=== PATIENT | female | born 1965 | race Caucasian/White ===

== ENCOUNTER 2022-05-25 10:05 | Emergency (ER) | payer OTHER, SELFPAY ==
--- NOTE | ~2022-05-25 | US_ITS ---
US venous doppler [facility] DATE: 05/25/2022 11:52 INDICATION: Left leg pain for one week TECHNIQUE: Real-time and color flow imaging and Doppler analysis of the veins of the left lower extre mity COMPARISON: None FINDINGS: The mid to distal left greater saphenous vein is occluded. There is spontaneous and phasic flow and normal augmentation and color flow signal and normal carlota souleymane of the left common femoral, femoral, popliteal, posterior tibial and peroneal veins. IMPRESSION: Thrombosis of mid to distal left greater saphenous vein No deep venous thrombosis of left lower extremity Reviewed, dictated and finalized at Location A. Reviewed, dictated and finalized at location B. APPLIANCE ADJUSTER
[2022-05-25 10:12] VITALS: BP 156/83; PULSE 106; RESP 18; TEMP 36.8; O2SAT 96
--- NOTE | 2022-05-25 13:20 | ED.EXTPRO ---
HPI - Extremity Problem General Chief complaint: Extremity Problem,Nontraumatic Stated complaint: DVT? Time Seen by Provider: 05/25/22 10:53 Source: patient Mode of arrival: ambulatory Limitations: no limitations History of Present Illness HPI Narrative: Patient is a 56-year-old female who presents the ED with report of pain and swelling to left lower extremity. Patient reports having intermittent pain with ambulation over the last 2 weeks in her left leg. Over the last 1 week, she has noticed redness to the medial aspect of her left lower leg. She was referred to the ED by her primary care doctor to rule out DVT due to patient recently having COVID19. Patient reports she has improved from COVID. She denies any further cough or cold sx's, chest pain, shortness of breath, dyspnea on exertion, orthopnea, palpitations, swelling of other extremity, pleuritic pain. Patient denies history of blood clots. Denies any recent long distance travel, hormonal supplements. Review of Systems Review of Systems: CONSTITUTIONAL: Denies fever, chills, or sweats. ENT: Denies rhinorrhea, congestion, sore throat. CARDIOVASCULAR: Denies chest pain, palpitations, or edema. RESPIRATORY: Denies cough, [place], pleuritic pain, or dyspnea. GASTROINTESTINAL: Denies abdominal pain, nausea, vomiting. SKIN: Reports redness to medial left leg. MUSCULOSKELETAL: Reports pain to left leg. NEUROLOGIC: Denies tingling, numbness, or weakness. All systems reviewed & are unremarkable except as noted in HPI and below PMFSH Past Medical History Medical History (Updated 05/25/22 @ 13:51 by Kate Dowell PA-C) HTN (hypertension) Surgical History Surgical History (Updated 05/25/22 @ 13:51 by Kate Dowell PA-C) No pertinent past surgical history Social History Social History (Updated 05/25/22 @ 13:50 by Kate Dowell PA-C) Smoking status: Current every day smoker Tobacco type: cigarettes Exam Narrative: GENERAL: Well appearing, morbidly obese, non-toxic, in no acute distress. HEAD: Normocephalic, atraumatic. NECK: Supple. No adenopathy, no masses. RESPIRATORY: Airway patent, respirations nonlabored. Clear to auscultation bilaterally, no rales, rhonchi, wheezing. CARDIOVASCULAR: Regular rate and rhythm without murmurs, rubs, or gallops. Pedal pulses 2+ and equal bilaterally. MUSCULOSKELETAL: Moves all extremities. Strength/ROM intact without gross deformities. Area of redness, swelling, warmth, tenderness to palpation to medial aspect of left leg, extending from distal third of thigh down to mid calf. SKIN: Warm, dry, normal color. No rashes. NEURO: A&O X3. Speech clear. Cranial nerves II-XII grossly intact. Steady gait. No ataxic movements. PSYCHIATRIC: Appropriate mood and affect. Normal interaction. Course Vital Signs Vital signs: Vital Signs Temperature 98.3 F 05/25/22 10:12 Pulse Rate 106 H 05/25/22 10:12 Respiratory Rate 18 05/25/22 10:12 Blood Pressure 156/83 H 05/25/22 10:12 Pulse Oximetry 96 05/25/22 10:12 Temperature 98.3 F 05/25/22 10:12 Pulse Rate 88 05/25/22 14:33 Respiratory Rate 20 05/25/22 14:33 Blood Pressure 142/60 H 05/25/22 14:33 Pulse Oximetry 99 05/25/22 14:33 MDM - Extremity (Nontraumatic) MDM Narrative Medical decision making narrative: Patient presented to ED with 1 week history of pain to left leg. Recent COVID, sent to rule out DVT. Patient with area of redness, tenderness, swelling to medial left leg on exam. Venous Doppler ultrasound of left lower extremity showing superficial venous thrombosis of greater saphenous vein. No DVT. Patient relatively low risk for blood clots aside from recent COVID. No previous Hx. She was documented as tachycardic upon arrival to the ED, however normal rate by the time of my evaluation. Patient adamantly denying any chest pain, difficulty breathing, dyspnea on exertion, respiratory sx's. No indication to investigate PE at this
[2022-05-25 14:33] VITALS: BP 142/60; PULSE 88; RESP 20; O2SAT 99
== END 2022-05-25 14:35 | disposition home or self-care (01) ==
PROVIDERS: Emergency Provider Physician Assistant
DX: I82.812 Embolism and thrombosis of superficial veins of left lower extremity (principal); Z86.16 Personal history of COVID-19; I10 Essential (primary) hypertension; F17.210 Nicotine dependence, cigarettes, uncomplicated
CPT/HCPCS: 93971; 99284

== ENCOUNTER 2023-04-16 08:24 | Outpatient (CLI) | payer OTHER, SELFPAY ==
--- NOTE | ~2023-04-16 | MM_ITS ---
EXAMINATION: MM screening salima BI w maximo HISTORY: Screening mammogram TECHNIQUE: Craniocaudal and mediolateral oblique 3-D tomosynthesis images were obtained and synthetic 2-D images were generated. CAD analysis was submitted and interpreted. COMPARISON: No prior mammogram is available for comparison at this institution. BREAST PARENCHYMAL COMPOSITION: The breasts are almost entirely fatty. FINDINGS: There is no evidence of suspicious mass, calcification, or architectural distortion to sugg est malignancy in either breast. IMPRESSION: 1. No mammographic evidence of malignancy. 2. Recommend routine screening mammography in one year. BI-RADS Category 1: Negative Reviewed, dictated and finalized at location A.
== END 2023-04-16 08:25 | disposition home or self-care (01) ==
LOC: ANHIMG 08:28
PROVIDERS: PCP Internal Medicine; Visit Provider Internal Medicine
DX: Z12.31 Encounter for screening mammogram for malignant neoplasm of breast (principal)
CPT/HCPCS: 77063; 77067

== ENCOUNTER 2023-09-25 07:59 | Outpatient (CLI) | payer OTHER, SELFPAY ==
--- NOTE | ~2023-09-25 | US_ITS ---
EXAMINATION: US_VDOPREFLT_US DATE: 09/25/2023 11:45 INDICATION: Left lower limb localized edema. TECHNIQUE: Grayscale ultrasound images without and with compression and Doppler ultrasound images of the left lower extremity veins were obtained. COMPARISON: None. FINDINGS: The visualized portions of left common femoral vein, profunda (deep) femoral vein, femoral vein, popl iteal vein, peroneal veins, and posterior tibial veins are patent. Left greater saphenous vein measur es 7 mm in the upper thigh where there is 1.0 seconds reflux. Left greater saphenous vein measures 4 mm in the lower thigh, there is 2.5 seconds reflux. Left greater saphenous vein measures 5 mm in the lower leg, there is 2.1 seconds reflux. Left small saphenous vein measures 2 mm without reflux. IMPRESSION: 1. Reflux in left greater saphenous vein. Reviewed, dictated and finalized at location A.
--- NOTE | ~2023-09-25 | US_ITS ---
EXAMINATION: US arterial ankle brachial ind DATE: 09/25/2023 11:45 INDICATION: Claudication. Peripheral vascular disease. TECHNIQUE: Segmental pressures and plethysmographic and Doppler waveforms of the brachial and lower e xtremity arteries were obtained. COMPARISON: None. FINDINGS: Right and left brachial artery pressures of 124 mm Hg and 118 mm Hg, respectively, are concordant (no rmal difference <= 30 mmHg). The right ankle-brachial index (ZOE) is 1.14 (normal >= 0.9-1.0). The right great toe-brachial index (TBI) is 0.64 (normal >= 0.65). Arterial Doppler waveforms are biphasic at the ankle. The left ZOE is 1.10. The left TBI is 1.03. Arterial Doppler waveforms are at least biphasic at the a nkle. IMPRESSION: 1. Normal right ZOE and borderline decreased right TBI, consistent with right-sided arterial occlusiv e disease. 2. No significant left-sided arterial occlusive disease. Reviewed, dictated and finalized at location A. IMPRESSION: 1. Normal right ZOE and borderline decreased right TBI, consistent with right-s ided arterial occlusive disease. 2. No significant left-sided arterial occlusive disease.
== END 2023-09-25 08:00 | disposition home or self-care (01) ==
PROVIDERS: PCP Internal Medicine; Visit Provider Nurse Practitioner Family
DX: R60.0 Localized edema (principal); I73.9 Peripheral vascular disease, unspecified
CPT/HCPCS: 93922; 93971

== ENCOUNTER 2024-04-19 08:05 | Outpatient (CLI) | payer OTHER, SELFPAY ==
[2024-04-19 08:35] LABS: Basophils Absolute Auto 0.1 K/mm3 (0.0-0.1); Basophils Percent Auto 1.1 % (0.2-1.2); Eosinophils Absolute Auto 0.2 K/mm3 (0-0.3); Eosinophils Percent Auto 2.4 % (0-4.4); Hematocrit 50.4 % (37.0-47.0); Hemoglobin 16.6 g/dL (12.0-15.0); Immature Granulocyte Absolute 0.02 K/mm3 (0.00-0.031); Immature Granulocyte Percent A 0.2 % (0-0.5); Lymphocytes Absolute Auto 2.84 K/mm3 (0.9-3.2); Lymphocytes Percent Auto 35.2 % (18.3-44.2); Mean Corpuscular HGB Conc 32.9 g/dl (32-36); Mean Corpuscular Volume 88.1 fl (80-100); Mean Platelet Volume 10.4 fl (7.4-10.4); Monocytes Absolute Auto 0.5 K/mm3 (0.1-0.6); Monocytes Percent Auto 6.7 % (2.6-8.5); Neutrophils Absolute Auto 4.4 K/mm3 (1.3-6.7); Neutrophils Percent Auto 54.4 % (45.5-73.1); Platelet Count Result 345 k/mm3 (150-375); Red Blood Count 5.72 M/mm3 (4.2-5.4); Red Cell Distribution Width 15.2 % (11.5-14.5); White Blood Count 8.1 K/mm3 (4.5-10.0)
[2024-04-19 08:43] LABS: Alanine Aminotransferase 17 U/L (6-35); Albumin Level 4.4 g/dL (3.5-5.1); Alkaline Phosphatase 76 U/L (38-126); Anion Gap 11 mmol/L (4-12); Aspartate Amino Transferase 24 U/L (14-36); Bilirubin,Total 0.7 mg/dL (0.2-1.3); Blood Urea Nitrogen 14 mg/dL (7-17); Calcium 9.2 mg/dL (8.4-10.2); Carbon Dioxide 24 mmol/L (22-30); Chloride 108 mmol/L (98-107); Cholesterol 171 mg/dL (0-200); Estimated Glomerular Filt Rate > 60; Glucose 103 mg/dL (65-110); HDL Direct 41 mg/dL; Sodium 143 mmol/L (137-145); Triglycerides 79 mg/dL (<150)
[2024-04-19 08:54] LABS: LDL Cholesterol Direct 102 mg/dL
[2024-04-19 09:26] LABS: MALB Creatinine Ratio 6.2 mg/g (0-30); Microalbumin Urine Random 7.9 mg/L (0-16.7)
[2024-04-19 09:27] LABS: Hemoglobin A1C 5.9 % (<5.7)
[2024-04-22 05:49] LABS: FSH 51.9 mIU/mL
== END 2024-04-19 08:06 | disposition home or self-care (01) ==
PROVIDERS: PCP Family Medicine; Visit Provider Family Medicine
DX: Z13.6 Encounter for screening for cardiovascular disorders (principal); Z13.1 Encounter for screening for diabetes mellitus; I10 Essential (primary) hypertension; Z78.0 Asymptomatic menopausal state
CPT/HCPCS: 36415; 80053; 80061; 82043; 83001; 83036; 85025

== ENCOUNTER 2024-04-25 12:55 | Outpatient (CLI) | payer OTHER, SELFPAY ==
--- NOTE | ~2024-04-25 | US_ITS ---
Pelvic ultrasound. Clinical History: Postmenopausal bleeding Technique: Realtime transabdominal and transvaginal scanning of the pelvis was performed. Color flow Doppler and Doppler spectral analysis were performed. Findings: The uterus is retroverted.. The endometrial stripe has a thickness of 5 mm. Myometrium is heterogeneous, without discrete focal mass. Cervical nabothian cysts present. Neither ovary seen. No adnexal mass seen. There is no evidence of free fluid in the cul de sac. Impression: Endometrial stripe is within normal limits. Reviewed, dictated and finalized at location M. L POURER Impression: Endometrial stripe is within normal limits.
== END 2024-04-25 12:56 | disposition home or self-care (01) ==
PROVIDERS: PCP Family Medicine; Visit Provider Family Medicine
DX: N95.0 Postmenopausal bleeding (principal)
CPT/HCPCS: 76830

== ENCOUNTER 2024-06-19 13:20 | Outpatient (CLI) | payer OTHER, SELFPAY ==
--- NOTE | ~2024-06-19 | CT_ITS ---
EXAMINATION: CT lung screening DATE: 06/19/2024 13:46 INDICATION: Z87.891 - Personal history of nicotine dependence TECHNIQUE: Computed tomography (CT) of the chest was performed without intravenous contrast. Addition al 3D reconstructions utilizing coronal maximum intensity projection (MIP) were performed. Automated exposure control and iterative reconstruction technique were employed. The dose-length product was 25 7.64 mGy-cm. COMPARISON: None FINDINGS: Small calcified nodules in the left upper and lower lobes along with calcified left hilar and mediast inal lymph nodes consistent with old granulomatous disease. 2 mm noncalcified nodule in the left lowe r lobe. No pneumonia, pulmonary edema or pleural effusion. Heart size is normal. No pericardial effus ion. Thoracic aorta is normal in caliber. No pathologically enlarged thoracic lymphadenopathy. Cholec ystectomy clips the gallbladder fossa. Small sliding-type hiatal hernia. Thoracic spondylosis. IMPRESSION: 1. Lung-RADS category 2: Benign appearance or behavior. Continue annual screening with noncontrast lo w-dose chest CT in 12 months. Reviewed, dictated and finalized at location B. ING TACKER IMPRESSION: 1. Lung-RADS category 2: Benign appearance or behavior. Continue annual screeni ng with noncontrast low-dose chest CT in 12 months.
== END 2024-06-19 13:21 | disposition home or self-care (01) ==
PROVIDERS: PCP Family Medicine; Visit Provider Physician Assistant
DX: Z12.2 Encounter for screening for malignant neoplasm of respiratory organs (principal); Z87.891 Personal history of nicotine dependence
CPT/HCPCS: 71271

== ENCOUNTER 2024-07-18 00:35 | Day surgery (SDC) | payer OTHER, SELFPAY ==
[2024-07-10 09:56] VITALS: BMI 37.5
--- NOTE | 2024-07-10 10:04 | PC.NURSE ---
Report to the Outpatient Waiting Room, entrance under the green pavilion located off [facility], at time _0830_ on date _[id number]_. Planned Procedure Time: _1030_.? Time changes happen often and if your time is changed the preop area will call you the afternoon before. - You and your visitor will be asked to self-screen and do not enter if you have any COVID symptoms. Please call surgeon if you need to reschedule. - A mask is optional within the hospital at this time. Patients may have clear liquids (water, carbonated beverages, clear teas, apple juice) until 3 hours prior to surgery with a maximum of 20 ounces. - No food from midnight until time of surgery and no smoking. This includes no chewing gum, candy or mints. Take only the following medications with a SIP of water on the morning of surgery: __None____ DO NOT STOP ANY OF YOUR OTHER PRESCRIPTION MEDICATIONS PRIOR TO SURGERY EXCEPT THE FOLLOWING Medications to discontinue per physician ____Vitamins Date to take last qlbr__[id number]__ Please no make-up, nail st helenian, hairspray, perfume, deodorant, or body powder the day of surgery.? No jewelry (including any body piercings) or valuables the day of surgery, leave them at home.? Please take a shower or bath the night before, or the morning of, surgery with an antibacterial soap.? Wear comfortable, loose fitting clothing.? - Jewelry must be removed prior to entering the operating room.? Rings and piercings that are not removed may be cut off. - The hospital will not accept responsibility for valuables.? - Please leave all valuables, including medications, at home the day of surgery. If you are going home after surgery, a licensed bellman driver must drive you home.? - NO public transportation without another adult if you receive anesthesia. - We recommend that an adult stay with you for 24 hours following discharge. - We also recommend that you do not drive, make important decision, drink alcoholic beverages, or take any drugs that were not prescribed by your health care provider for at least 24 hours after your discharge time. Follow any additional instructions given to you from your surgeon. Telephone instructions given to __Debra__and asked if any additional questions and then verbalized understanding. Patient advised to call surgeon office or pre surgery nurse liaison [phone] if any additional questions.
--- NOTE | 2024-07-18 08:07 | P.PNAN_ITS ---
Anes - Initial Pre Proc Eval Procedure: Operation Date: 07/18/24 11:30 Proposed Procedures p Hysteroscopy Dilation and Curettage with Possible Removal of Endometrial Lesions - Jose Juan Dawkins MD Date/Time: 07/18/24 08:07 Surgeon: Jose Juan Dawkins MD Pre Op Diagnosis: Post Menopausal Bleeding Patient Data Age: 58 Gender: F Height: 1.77 m Weight: 116.8 kg Allergies Allergy/AdvReac Type Severity Reaction Status Date / Time No Known Allergies Allergy Verified 07/18/24 10:26 Home Medications ?Medication ?Instructions ?Recorded ?Confirmed ?Type lisinopril 40 mg tablet 40 mg PO DAILY 04/07/24 07/18/24 History atorvastatin 20 mg tablet 20 mg PO DAILY #30 tabs 04/28/24 07/18/24 Rx cholecalciferol (vitamin D3) 50 50 mcg PO DAILY 05/14/24 07/18/24 History mcg (2,000 unit) capsule cyanocobalamin (vitamin B-12) 50 50 mcg PO DAILY 05/14/24 07/18/24 History mcg tablet (Vitamin B-12) Patient hx anesthesia problems: none Family hx anesthesia problems: none Results Review: All pre-operative results and documents have been reviewed as part of the pre- operative evaluation. [facility] Past Medical History Medical History (Updated 07/18/24 @ 08:07 by Christiano Nunn DO) SAI (obstructive sleep apnea) Hyperlipidemia H/O cyst of breast HTN (hypertension) Surgical History Surgical History [place] teeth removed History of loop electrosurgical excision procedure (LEEP) History of colposcopy History of appendectomy No pertinent past surgical history Family History Family History Mother Cancer Diabetes mellitus Sibling Alcoholism Heart problem Social History Social History Smoking packs per day: 1 Smoking cigarettes per day: 20.0 Years smoked: 35 Smoking pack-years: 35.00 Smoking status: Current every day smoker Tobacco type: cigarettes Alcohol intake: current Do You Feel Safe in your Home?: Yes Lack of Transportation: No Lack of Food: Never True Current Housing: I Have Housing Concerned About Future Housing: No Difficulty Paying Gas/Electric Bills: No Currently Unemployed: No Education: Associate Degree Difficulty w/ Childcare or Family Care: No Living arrangements: with family Spiritual care concerns: No Anes - Eval Final PreProcedure Day of Procedure 07/18/24 08:07 Patient weight: obese Heart: regular rate and rhythm Lungs: clear to auscultation Airway: Mallampati scale class II Neurological: alert and oriented Last oral intake: >/= 8 hours ASA classification: III Emergent: no Anesthetic plan: proceed Anesthesia type and monitoring: general GIVS and standard monitoring Results Review: All pre-operative results and documents have been reviewed as part of the pre- operative evaluation. Informed Consent: The patient's anesthetic plan and its attendant risks and benefits were discussed with the patient/family/POA. Questions were solicited and answers provided to the satisfaction of the patient/family/POA.
[2024-07-18 09:25] VITALS: BP 135/67; PULSE 82; RESP 16; TEMP 36.3; O2SAT 96
[2024-07-18] MEDS: LACTATED RINGERS 1,000 ML 30 ML IV CONT (10:05)
[2024-07-18] MEDS: ACETAMINOPHEN 500 MG TABLET 1000 MG PO (10:11)
--- NOTE | 2024-07-18 10:12 | WPDHPUPDATE1 ---
History and Physical Update Update Date/Time: 07/18/24 10:12 History and Physical has been reviewed, including an updated exam of the patient. There are NO changes in the patient's condition. Risks, benefits, and alternatives have been discussed and questions answered. Patient agrees to proceed with procedure.
[2024-07-18 10:27] VITALS: BMI 37.1
[2024-07-18] MEDS: ceFAZolin 2 GM/D5W 50 ML 2 GM/50 ML BAG IVPB (11:16)
[2024-07-18] MEDS: LIDOCAINE 1% LOCAL INJ 20 ML VIAL 10 ML INFILTRATE (11:35)
[2024-07-18 11:44] VITALS: PULSE 81; RESP 14; O2SAT 97
--- NOTE | 2024-07-18 12:02 | P.OP_ITS ---
Procedure Note - Detailed Date of Procedure 07/18/24 Pre-op Diagnosis Post Menopausal Bleeding and Endometrial polyp Post-op Diagnosis Same Procedure Performed hysteroscopic removal endometrial polyp and dilation and curettage Surgeon Jose Juan Dawkins MD Anesthesia MAC and Local Indications postmenopausal bleeding and office endometrial biopsy showing endometrial polyp Findings small polyp at the superior right near cornual area of uterine cavity it was r emoved completely the rest the cavity was atrophic appearing Description of Procedure after informed consent was obtained patient was taken to the operating room and adequate IV sedation was administered she was placed in lithotomy position and prepped and draped in sterile fashion. Speculum was inserted single-tooth tenaculum placed on the anterior lip of the cervix 10 cc of 1% lidocaine was injected at the cervical vaginal interface at the 2 and 5 and 8 and 10 position. The cervix was dilated to a 4 Gannon dilator. The sound was inserted and the uterus was sound to 7 cm. The hysteroscope was inserted into the cavity and the endometrial polyp was seen at the superior right cavity. The Aveta instrument was used to remove the polyp which was removed completely curettage was performed with minimal tissue single-tooth tenaculum removed hemostasis noted patient tolerated procedure well and was taken to recovery in stable condition. Estimated Blood Loss 5 Drains No Packing No Pathology Yes ( endometrial curettings and shavings) Complications No immediate complications Condition Stable Disposition Observation [facility] Billing Surgery - Charge Forward: Surgery Billing
[2024-07-18 12:15] VITALS: BP 141/72; PULSE 69; RESP 16; O2SAT 97
[2024-07-18] MEDS: oxyCODONE HCL (*CRX) 5 MG TAB IR PO (12:15)
[2024-07-18 12:33] VITALS: BP 127/75; PULSE 72
--- NOTE | 2024-07-18 12:50 | SUR.PHASEII ---
1210 PT MOVED TO PREOP 5 FOR REMAINDER OF OUTPATIENT RECOVERY
== END 2024-07-18 12:50 | disposition home or self-care (01) ==
PROVIDERS: PCP Family Medicine; Visit Provider Obstetrics & Gynecology
PROC: 0U5B8ZZ Destruction of Endometrium, Via Natural or Artificial Opening Endoscopic (ICD-10-PCS; CPT 58563; principal; 2024-07-18 11:30)
DX: N84.0 Polyp of corpus uteri (principal); I10 Essential (primary) hypertension; E78.5 Hyperlipidemia, unspecified; G47.33 Obstructive sleep apnea (adult) (pediatric); F17.210 Nicotine dependence, cigarettes, uncomplicated; E66.9 Obesity, unspecified; Z68.37 Body mass index [BMI] 37.0-37.9, adult; Z98.890 Other specified postprocedural states; Z80.9 Family history of malignant neoplasm, unspecified; Z82.49 Family history of ischemic heart disease and other diseases of the circulatory system
CPT/HCPCS: 58558; 88305; A9270; J0690; J1100; J2003; J2250; J2405; J2704; J3010; J7120

== ENCOUNTER 2024-09-17 15:58 | Outpatient (CLI) | payer OTHER, SELFPAY ==
[2024-09-17 16:15] LABS: Basophils Absolute Auto 0.1 K/mm3 (0.0-0.1); Basophils Percent Auto 0.8 % (0.2-1.2); Eosinophils Absolute Auto 0.2 K/mm3 (0-0.3); Eosinophils Percent Auto 1.7 % (0-4.4); Hematocrit 46.9 % (37.0-47.0); Hemoglobin 15.3 g/dL (12.0-15.0); Immature Granulocyte Absolute 0.03 K/mm3 (0.00-0.031); Immature Granulocyte Percent A 0.3 % (0-0.5); Lymphocytes Absolute Auto 2.71 K/mm3 (0.9-3.2); Lymphocytes Percent Auto 29.4 % (18.3-44.2); Mean Corpuscular HGB Conc 32.6 g/dl (32-36); Mean Corpuscular Hemoglobin 28.2 pg (26-34); Mean Corpuscular Volume 86.4 fl (80-100); Mean Platelet Volume 10.3 fl (7.4-10.4); Monocytes Absolute Auto 0.5 K/mm3 (0.1-0.6); Monocytes Percent Auto 5.3 % (2.6-8.5); Neutrophils Absolute Auto 5.8 K/mm3 (1.3-6.7); Neutrophils Percent Auto 62.5 % (45.5-73.1); Platelet Count Result 339 k/mm3 (150-375); Red Blood Count 5.43 M/mm3 (4.2-5.4); Red Cell Distribution Width 14.6 % (11.5-14.5); White Blood Count 9.2 K/mm3 (4.5-10.0)
--- OUTSIDE RECORDS SUMMARY | 2024-09-17 17:04 | XMS_ITS | Clinical Summary ---
Author Organization [facility] Address [address] [place] [address] Care Team Providers Care Auto Cleaner Name Role Phone Nate Johnson MD Primary Care Provider Source Comments [facility],non-owned Affiliates and Associated Physician Practices is amultiple site organization consisting of ambulatory clinics and hospital sitesin [place], [place], [place] and [place]. This disclosure is being madepursuant to the Care Everywhere program and may not contain all information available regarding this patient. Last updated 18.[facility] Allergies Active Allergy Reactions Criticality Noted Date Comments Codeine GI Discomfort 2018 Medications * Be aware that medications may not be up to date on this document. Alwaysverify current medications with the patient. Medication Sig Dispensed Refills Start Date End Date Status Multiple Vitamins-Minerals (MULTIVITAL PO) Active lisinopril (PRINIVIL; ZESTRIL) 20 MG tablet Take 20 mg by mouth once daily Active Social History Tobacco Use Types Packs/Day Years Used Date Smoking Tobacco: Every Day Smokeless Tobacco: Never Sex and Gender Information Value Date Recorded Sex Assigned at Not on file Gender Identity Not on file Sexual Orientation Not on file Last Filed Vital Signs Vital Sign Reading Time Taken Comments Blood Pressure 142/90 2018 11:30 AM CDT Pulse 81 04/07/2020 10:41 AM CDT Temperature 36.6 C (97.9 F) 04/07/2020 10:41 AM CDT Respiratory Rate 18 04/07/2020 10:41 AM CDT Oxygen Saturation 96% 04/07/2020 10:41 AM CDT Inhaled Oxygen Concentration - - Weight 112.9 kg (249 lb) 04/07/2020 10:41 AM CDT Height 177.8 cm (5' 10 ) 04/07/2020 10:41 AM CDT Body Mass Index 35.73 04/07/2020 10:41 AM CDT Plan of Treatment Health Maintenance Due Date Last Done Comments COLOGUARD (AGES 45-75) - COL ON CA SCREENING 1964 COLON MONITORING 1964 COLONOSCOPY - COLON CA SCREENING 1964 CT COLONOGRAPHY - COLON CA SCREENING 1964 Colorectal Cancer Screening 1964 FIT - COLON CA SCREENING 1964 FLEX SIG - COLON CA SCREENING 1964 LIPID TESTING 1964 MAMMOGRAM 1964 PAP SMEAR 1964 HIV SCREENING 11/04/1979 HEPATITIS C SCREENING 10/30/1982 DTAP/TDAP/TD VACCINES (1 - Tdap) 11/04/1983 HEPATITIS B VACCINE (1 of 3 - 19+ 3-dose series) 11/04/1983 PNEUMOCOCCAL VACCINE (1 of 2 - PCV) 11/04/1983 PNEUMOCOCCAL VACCINE 50+ (1 of 1 - PCV) 2014 ZOSTER VACCINE (1 of 2) 2014 SCREENING FOR DIABETES 04/07/2020 COVID-19 VACCINE (1 - 2023-2 5 season) 2024 INFLUENZA VACCINE (#1) 2024 DEPRESSION SCREENING 06/25/2024 HIB VACCINE Aged Out No longer eligi ble based on patient's age to complete this topic HPV VACCINE Aged Out No longer eligi ble based on patient's age to complete this topic MENINGOCOCCAL (Group B) VACC INE SHARED DECISION-MAKING Aged Out No longer eligibl e based on patient's age to complete this topic MENINGOCOCCAL GROUPS A/C/Y/W VACCINE Aged Out No longer eligible b ased on patient's age to complete this topic Care Teams Auto Cleaner Relationship Specialty Start Date End Date Nate Johnson MD [address] [address] PCP - General Internal Medicine 11/03/18
--- OUTSIDE RECORDS SUMMARY | 2024-09-17 17:04 | XMS_ITS | Clinical Summary ---
Author Organization [facility] Address [address] [place] [address] Care Team Providers Care State Director Name Role Phone Unavailable Primary Care Provider Unavailabl e Allergies No known active allergies Medications atorvastatin (LIPITOR) 20 mg tablet Take 1 Tablet by mouth daily. 08/05/2024 Active lisinopriL (PRINIVIL) 40 mg tablet Take 40 mg by mouth daily. Active cyanocobalamin 1,000 mcg Tablet Take 500 mcg by mouth daily. Active B3/azel ac/zinc/B6/coppe r/FA (A9-SPPEGIO-WIBV -S0-[id number]-NW ORAL) Take 50 mcg by mouth daily. Active Active Problems No known active problems Encounters Date Type Department Care Team Description 09/17/2024 3:00 PM CDT Office Visit [facility] Oncology and Hematology [facility] [address] [place] [address] Weston Dong MD Erythrocytosis (Primary Dx); Screening for lung cancer 09/17/[address] [facility] Oncology and Hematology [facility] [address] [place] [address] Weston Dong MD from Last 3 Months Family History Medical History Relation Name Comments No Known Problems Brother 1 No Known Problems Brother 2 Heart Disease Brother 3 No Known Problems Child Liver Cancer Mother Spot on liver Uterine Cancer Mother No Known Problems Sister Relation Name Status Comments Brother 1 Alive Brother 2 Alive Brother 3 Child Alive Father Mother Sister Alive Social History Tobacco Use Types Packs/Day Years Used Date Smoking Tobacco: Every Day Cigarettes 1 41.2 Started: 06/25/1983 Smokeless Tobacco: Never Tobacco Cessation:Ready to Q uit: Not Asked; Counseling Given: Not Answered Alcohol Use Standard Drinks/Week Comments Yes 0 (1 standard drink = 0.6 oz pur e alcohol) Occasionally Comments Unknown Sex and Gender Information Value Date Recorded Sex Assigned at Not on file Legal Sex Female 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 Gender Identity Not on file Sexual Orientation Not on file Last Filed Vital Signs Vital Sign Reading Time Taken Comments Blood Pressure 127/73 09/17/2024 3:26 PM CDT Pulse 92 09/17/2024 3:26 PM CDT Temperature 36.3 C (97.4 F) 09/17/2024 3:26 PM CDT Respiratory Rate 15 09/17/2024 3:26 PM CDT Oxygen Saturation 93% 09/17/2024 3:26 PM CDT Inhaled Oxygen Concentration - - Weight 117.3 kg (258 lb 9.6 oz) 09/17/2024 3:26 PM CDT Height 175.3 cm (5' 9 ) 09/17/2024 3:26 PM CDT Body Mass Index 38.19 09/17/2024 3:26 PM CDT Plan of Treatment Upcoming Encounters Date Type Department Care Team (Late st Contact Info) Description 10/01/2024 4:15 PM CDT Telephone Check Up [facility] Oncology and Hematology - [place] [address] [address] [place] [address] Weston Dong MD [address] [facility] [address] [facility] [place] [address] Health Maintenance Due Date Last Done Comments DTAP/TDAP/TD VACCINES (1 - Tdap) 11/04/1983 HEPATITIS B VACCINES (1 of 3 - 19+ 3-dose series) 10/23 PAP SMEAR 1985 CERVICAL CANCER SCREENING 1994 HPV/Cotest 1994 PAP SMEAR 1994 BREAST CANCER SCREENING 2004 COLORECTAL SCREENING 2009 Colorectal Cancer Screening 2009 FIT-DNA Q 3 years 2009 FIT/FOBT Q 1 year 2009 Flex Sig/CT Colonography Q 5 years 2009 ZOSTER VACCINE (1 of 2) 2014 INFLUENZA VACCINE (#1) 2024 Insurance NATL [employer]N LETTER [employer] OAP NAT[employer] OAP
--- OUTSIDE RECORDS SUMMARY | 2024-09-17 17:04 | XMS_ITS | Clinical Summary ---
Author Organization [facility] Address [address] [place] [id number] Care Team Providers Care Ignition Mechanic Name Role Phone Nate Johnson MD Primary Care Provider Allergies Active Allergy Reactions Criticality Noted Date Comments Amoxicillin Other (See comments) Low 11/02/2020 Codeine Other (See comments) Low 2018 Medications lisinopriL (PRINIVIL,ZESTRI L) 40 mg tablet 09/17/2020 Act parviz aspirin 81 mg enteric coated tablet Take 81 mg by mouth daily Active buPROPion SR (ZYBAN) 150 mg 12 hr tablet 10/12/2020 Active Active Problems Problem Noted Date Diagnosed Date Tonsillar cyst 01/06/2021 Assessment & Plan (01/06/2021 10:40 AM CDT): Patient has undergone MRI C-spine with an incidental finding of a tonsillar cyst. While this may be a benign finding direct visualization was recommended. I have asked her to follow-up with her PCP for referral to an ENT for further investigation into this matter as appropriate. Paresthesia of skin 09/27/2020 Assessment & Plan (01/06/2021 10:33 AM CDT): Patient has had spontaneous reduction in frequency of episodic migratory paresthesia in the left arm. MRI of the cervical spine demonstrates cervical spondylosis. EMG/NCS testing is normal. I will place her through a course of physical therapy for what clinically would be likely intermittent cervical radiculopathy associated with her cervical spondylosis. I will see her back in the office on an as-needed basis thereafter. Assessment & Plan (11/02/2020 10:20 AM CDT): Patient continues with episodic left arm numbness not currently associated with lightheadedness. Previous MRI brain is normal as is lipid profile. Cardiac testing by reviewed reports are normal today as well. As per my previous records, I will pursue an MRI of the cervical spine and neurophysiologic testing with EMG/NCS to assess for the possibility of compressive neuropathy or radiculopathy. I will see her back thereafter. Assessment & Plan (09/27/2020 9:19 AM CDT): Patient reports a 6 week history of multiple episodes lasting up to 30-45 minutes at a time of left arm diffuse numbness, sometimes in isolation and other times associated with hypertension, lightheadedness, and tunneling of vision. She reports having had previous carotid ultrasound and echocardiogram performed which she was told were normal as well as a CT scan of the brain that she was told was normal although those reports are unavailable for review today. They will be requested for review. Differential diagnosis includes cardiac ischemia, TIA, cervical radiculopathy, and less likely compressive neuropathy. I will obtain an MRI of the brain and a fasting lipid profile, and I have asked patient to contact her PCP for a cardiology evaluation. I think given her history of cardiac issues, cardiac ischemia must be excluded 1st, and then if all other testing is negative, I can pursue a radiculopathy or compressive neuropathy evaluation thereafter. I will see her back upon completion of study. Surgical History Surgery Date Site/Laterality Comments GALLBLADDER SURGERY APPENDECTOMY BREAST SURGERY WRIST SURGERY SHOULDER SURGERY Medical History Medical History Date Comments Hypertension Family History Medical History Relation Name Comments Parkinsonism Father Diabetes Mother Relation Name Status Comments Father Mother Alive Social History Tobacco Use Types Packs/Day Years Used Date Smoking Tobacco: Every Day Smokeless Tobacco: Never Personal Safety Answer Date Recorded Getting School Help Needed Not on file 08/25 Comments Unknown Sex and Gender Information Value Date Recorded Sex Assigned at Not on file 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 [employer] Gender Identity Not on file Sexual Orientation Not on file 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 Not on file Not on file Not on jie e Obstetrics History Last Filed Vital Signs Vital Sign Reading Time Taken Comments Blood Pressure 136/88 01/06/2021 9:43 AM CDT Pulse 92 01/06/2021 9:43 AM CDT Temperature 37.1 C (98.7 F) 01/06/2021 9:43 AM CDT Respiratory Rate - - Oxygen Saturation - - Inhaled Oxygen Concentration - - Weight 112.6 kg (248 lb 3.2 oz) 01/06/2021 9:43 AM CDT Height 175.3 cm (5' 9 ) 01/06/2021 9:43 AM CDT Body Mass Index 36.65 01/06/2021 9:43 AM CDT Plan of Treatment Not on file Insurance Care Teams Ignition Mechanic Relationship Specialty Start Date End Date Nate Johnson MD PCP - General Internal Medicine 09/24/20
--- OUTSIDE RECORDS SUMMARY | 2024-09-17 17:04 | XMS_ITS | Referral Summary ---
Author Organization [facility] Address [address] [place] [id number] Care Team Providers Care Reactor Service Operator Name Role Phone Nate Johnson MD Primary [...] see her back upon completion of study. 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
--- OUTSIDE RECORDS SUMMARY | 2024-09-17 17:04 | XMS_ITS | Encounter Summary ---
Author Organization [facility] Address [address] [place] [address] Care Team Providers Care Project Manager Interior Design Name Role Phone Unavailable Primary Care Provider Unavailabl e Reason for Referral * CT Scan (Routine) - Pending Review Specialty Diagnoses / Procedures Referred By Nikki rodriguez Referred To Contact Diagnoses Screening for lung cancer Procedures CT LUNG SCREENING (F/U DIAGNOSTIC) W CONTRAST Weston Dong MD [address] [place] [phone] Phone: tel: fax: [place] [phone] Referral ID Status Reason Start Date Expiration Date Visits Requested Visits Authorized [id number] Pending Review [facility] CTS 09/17/2024 10/18/2025 1 1 * Laboratory Services (Routine) - Closed Specialty Diagnoses / Procedures Referred By Nikki rodriguez Referred To Contact Diagnoses Erythrocytosis Procedures JAK2 MUTATION Weston Dong MD [address] [place] [phone] Phone: tel: fax: Referral ID Status Reason Start Date Expiration Date Visits Re quested Visits Authorized [id number] Closed 09/17/2024 10/18/2025 1 1 Reason for Visit * Reason Comments Establish Care Encounter Details Date Type Department Care Team (Late st Contact Info) Description 09/17/2024 3:00 PM CDT Office Visit 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 Problem list There is no problem list on file for this patient. Previous TREATMENT ? Measurable Disease ? Reason for Visit Charissa Kirk is a 58 y.o. female who was referred for consultation for erythrocytosis. History of present illness This is a 58-year-old obese female with history of hypertension and hyperlipidemia along with smoking 1 pack/day for more than 40 years duration. She also has a history of sleep apnea but not using any CPAP machine. She has gained 100 pound weight in last 30 years duration. She has a history of superficial left lower extremity thrombophlebitis 4 years ago. Her labs from May 2024 showed hemoglobin of 16.5 with hematocrit of 49.3. She denies any other new complaints. Past Medical History Past Medical History: Diagnosis Date Hyperlipidemia Hypertension Surgical History No past surgical history on file. Medications Current Outpatient Medications Medication Sig Dispense Refill atorvastatin (LIPITOR) 20 mg tablet Take 1 Tablet by mouth daily. cyanocobalamin 1,000 mcg Tablet Take 500 mcg by mouth daily. B3/azel ac/zinc/B6/copper/FA (D3-EYIORQI-LBPL-P2-[id number]-IA ORAL) Take 50 mcg by mouth daily. lisinopriL (PRINIVIL) 40 mg tablet Take 40 mg by mouth daily. No current facility-administered medications for this visit. Allergies No Known Allergies Immunizations: There is no immunization history on file for this patient. Family History Family History Problem Relation Name Age of Onset Liver Cancer Mother Spot on liver Uterine Cancer Mother No Known Problems Brother No Known Problems Brother Heart Disease Brother No Known Problems Sister No Known Problems Child Social History Social History Tobacco Use Smoking status: Every Day Current packs/day: 1.00 Average packs/day: 1 pack/day for 41.2 years (41.2 ttl pk-yrs) Types: Cigarettes Start date: 06/25/1983 Smokeless tobacco: Never Substance Use Topics Alcohol use: Yes Comment: Occasionally Review of Systems Constitutional: Patient did not mention fever; no night sweats; no anorexia; no weight loss; no fatique NEENT: Patient did not mention headache; no change in vision; no change in hearing; no sore throat;no dysphagia Respiratory: Patient did not mention shortness of breath; no pleuritic chest pain; no cough; no hemoptysis Cardiac: Patient did not mention cardiac-like chest pain; no palpitations; no orthopnea; no PND; noDOE Breasts: Patient did not mention tenderness; no masses GI: Patient did not mention abdominal pain; no nausea; no vomiting; no diarrhea; no hematochezia; no melena : Patient did not mention dysuria; no frequency; no hesitancy; no hematuria MANAGER INTERNSHIP: Musculosketetal: Patient did not mention bone pain; no arthralgia; no joint swelling; no myalgia; Skin: Patient did not mention pruritis; no rash; no petechiae; no ecchymoses Endocrine: Patient did not mention polydipsia; no polyuria; no unusual weight gain Neuro: Patient did not mention headache; no change in vision; no sensory changes; no muscle weakness; no confusion; no seizures Psych: Patient did not mention anxiety; no depression; Physical Exam Vitals: As per nursing note Constitutional: Well developed, well nourished, no acute distress, non-toxic appearance Teeth and gum. No signs of infection or swelling. Eyes: PERRL, conjunctiva normal HEENT: Atraumatic, external ears normal, nose normal, oropharynx moist, no pharyngeal exudates. no sinus tenderness Neck- normal range of motion, no tenderness, supple Respiratory: No respiratory distress, normal breath sounds, no rales, no wheezing Cardiovascular: Normal rate, normal rhythm, no murmurs, no gallops, no rubs GI: Soft, nondistended, normal bowel sounds, nontender, no splenomegaly, no hepatomegaly, no mass, no rebound, no guarding : No costovertebral angle tenderness Musculoskeletal: No edema, no tenderness, no deformities. Back- no tenderness Integument: Well hydrated, no rash, Digits and nails inspection normal Lymphatic: No lymphadenopathy noted Neurologic: Alert & oriented x 3, CN 2-12 normal, normal motor function, normal sensory function, no focal deficits noted Psychiatric: Speech and behavior appropriate ? labs No results found for this or any previous visit (from the past 24 hours). Labs from May 2024 showed WBC 9.8 hemoglobin 16.5 hematocrit 49.3 platelet count 395,000 Pathology ? Imaging & Other Studies Performance Status? Assessment / Plan: ? Secondary erythrocytosis. Patient is a pleasant 58-year-old obese female with history of smoking 1 pack/day for more than 40 years duration along with history of sleep apnea. She also has gained 100 pound weight in last 30 years duration. She has a history of left lower extremity thrombophlebitis. I have discussed the differential diagnosis of erythrocytosis. In her case this is secondary to smoking and COPD along with weight gain. We will order the workup that will include CBC, CMP, erythropoietin level and JAK2 mutation. She will start taking baby aspirin once a day. Based on the repeat test will decide about phlebotomy to keep hematocrit less than 50. I will talk to her next week to discuss the findings and further recommendations. I have answered all the question to patient satisfaction. Hypertension. Patient is on lisinopril. Hyperlipidemia. Patient is on atorvastatin. Thank you very much for allowing me to participate in Charissa Kirk's evaluation and management. Please feel free to contact if I can be of any further assistance in your patient???s care requiringhematology or oncology evaluation. Sincerely, ? ? Weston Dong M.D. cell TOBACCO COUNSELING She was counseled to discontinue tobacco/nicotine use. Weston Dong MD ,09/17/2024 4:19 PM ? Total time spent 60 minutes, two third of the total time spent counseling patient [id number]. CC:? documented in this encounter Plan of Treatment Upcoming Encounters Date Type Department Care Team (Late st Contact Info) Description 10/01/2024 4:15 PM CDT Telephone Check Up [facility] - [facility] [address] [facility] [address] [phone] Weston Dong MD [address] [facility] [address] [place] [address] Scheduled Orders Name Type Priority Associated Diagnoses Orde r Schedule CBC WITH DIFFERENTIAL Lab Stat Erythrocytosis Expected: 09/17/2024, Expires: 09/17/2025 COMPREHENSIVE METABOLIC PANEL Lab Stat Erythrocytosis Expected: 09/17/2024, Expires: 09/17/2025 JAK2 MUTATION Lab Routine Erythrocytosis Expected: 09/17/2024, Expires: 09/17/2025 ERYTHROPOIETIN LEVEL Lab Routine Erythrocytosis Expected: 09/17/2024, Expires: 09/17/2025 CT LUNG SCREENING (F/U DIAGNOSTIC) W CONTRAST Imaging Routine Screening for lung cancer Expected: 09/24/2024, Expires: 09/17/2025 documented as of this encounter Visit Diagnoses Diagnosis Erythrocytosis- Primary Reserved for inherently not codable concepts WITHOUT codable children Screening for lung cancer documented in this encounter
--- OUTSIDE RECORDS SUMMARY | 2024-09-17 17:04 | XMS_ITS | CONTINUITY OF CARE DOCUMENT ---
Author Name jess mercado Address Unknown Organization [facility] Address [address] [place] [address] Phone [phone] Care Team Providers Care R[employer] Service Employee Name Role Phone Td COLEMAN, Latasha Unavailable Nate Johnson MD Unavailable Nate Johnson MD Unavailable [phone] PROBLEMS Condition Status Date Provider Notes B12 deficiency active Josep Mena MD Vitamin D deficiency active Josep Conley PREDIABETES; active Josep Mena MD Leg ulcer, left lateral active nOel Hogue MD DVT active Onel Hogue MD SAI--mod, autopap active Linwood Knight ? Sleep apnea completed - Linwood Knight Hyperlipidemia;NEG CRP active Josep Mena MD Erythrocytosis active Josep Mena MD FAMILY HISTORY OF HEART DISEASE active Josep Mena MD brother Screening active Josep Mena MD neg uacr neg pro Venous insufficiency active Ellie Rosas ASSISTANT ATHLETIC TRAINER Obesity active Vidal Au Abnormal EKG completed - Josep Mena MD Family history of premature heart disease - calcium score 0, nl stress nuc 11/12 completed - Josep Mena MD Tobacco dependence, continuous active Josep Mena MD Numbness and tingling, left arm completed - Josep Mena MD Dizziness, nl carotid 09/12 completed - Josep Mena MD HTN active Vidal Bonnert ENCOUNTERS Date Type Provider Location Encounter Diag nosis - In-person encounter Office Visit Onel Hogue MD [facility] - In-person encounter Office Visit Onel Hogue MD [facility] DVTLeg ulcer, left lateral - In-person encounter Office Visit Latasha Appiah MD [facility] ? Sleep apneaOSA--mod, autopap - In-person encounter Office Visit Josep Mena MD [facility] Dizziness, nl carotid 09/12Numbness and tingling, left armTobacco dependence, continuousFamily history of premature heart disease - calcium score 0, nl stress nuc 11/12Abnormal EKGScreeningFAMILY HISTORY OF HEART DISEASEErythrocytosisHyperli pidemia;NEG CRP - In-person encounter Office Visit Onel Hogue MD [facility] - In-person encounter Office Visit Onel Hogue MD [facility] Venous insufficiency - In-person encounter Office Visit Latasha Appiah MD [facility] Obesity - In-person encounter Office Visit Latasha Appiah MD [facility] HTNTobacco dependence, continuousFamily history of premature heart disease - calcium score 0, nl stress nuc 11/12 VITAL SIGNS Date Observation Value Provider Body Mass Index (Ratio) 36.30 kg/m2 Verito Hogue MD blood pressure, diastolic 89 mm[Hg] St charles Crenshaw blood pressure, systolic 126 mm[Hg] Mariano clayton Flower oxygen saturation, oximetry 96 % Connie Crenshaw respiratory rate E&M 16 /min Luther bartlett Flower pulse rate 92 /min Connie Deshpande n blood pressure, cuff size large St soto [place] weight E&M 253 [lb_av] Connie Deshpande n height E&M 70 [in_i] Connie Deshpande n Body Mass Index (Ratio) 37.30 kg/m2 Verito Hogue MD blood pressure, diastolic 89 mm[Hg] Mikala dee [place] blood pressure, systolic 113 mm[Hg] Kilo tali [place] oxygen saturation, oximetry 94 % Krupa Child pulse rate 82 /min Krupa conley weight E&M 260 [lb_av] Krupa conley respiratory rate E&M 16 /min Nikole izabel Child blood pressure, cuff size large Mikala dee Child height E&M 70 [in_i] Krupa conley Body Mass Index (Ratio) 37.02 kg/m2 David Appiah MD blood pressure, diastolic 88 mm[Hg] St denisa Fink blood pressure, systolic 141 mm[Hg] Romel Fink oxygen saturation, oximetry 97 % Isabellaclemente Fink pulse rate 82 /min Isaebllaclemente Fink respiratory rate E&M 16 /min Isabella chu weight E&M 258 [lb_av] Isabellaclemente Fink height E&M 70 [in_i] Isabella Aleks Body Mass Index (Ratio) 37.27 kg/m2 Alma Mena MD blood pressure, diastolic 97 mm[Hg] Shannan Evans blood pressure, systolic 158 mm[Hg] Racheal Zack blood pressure, diastolic 97 mm[Hg] St denisa Fink blood pressure, systolic 158 mm[Hg] Romel watkins Aleks oxygen saturation, oximetry 96 % Isabella Aleks pulse rate 97 /min Isabella Fink respiratory rate E&M 16 /min Isabella Thelma chu weight E&M 259.8 [lb_av] Isabella Aleks height E&M 70 [in_i] Isabella Aleks Body Mass Index (Ratio) 36.30 kg/m2 Verito Hogue MD blood pressure, cuff size regular Clemente bellamy Gregorio blood pressure, diastolic 70 mm[Hg] Clemente bretbryan Gregorio blood pressure, systolic 124 mm[Hg] Radha valdes [place] oxygen saturation, oximetry 96 % Erinn Perkins pulse rate 88 /min Erinn cazares respiratory rate E&M 16 /min Erinn Gregorio weight E&M 253 [lb_av] Erinn Osbornebel l height E&M 70 [in_i] Erinn Osbornebel l Body Mass Index (Ratio) 36.30 kg/m2 Verito Hogue MD oxygen saturation, oximetry 95 % Chastity Belia blood pressure, diastolic 80 mm[Hg] Ch astity Belia blood pressure, systolic 153 mm[Hg] Shawna stity Belia respiratory rate E&M 16 /min Chastit y Belia weight E&M 253 [lb_av] Chastity Belia pulse rate 88 /min Chastity Belia height E&M 70 [in_i] Chastity Belia Body Mass Index (Ratio) 36.01 kg/m2 David Appiah MD blood pressure, cuff size large Ke rri Gruenenfelder blood pressure, diastolic 70 mm[Hg] Ke rri Gruenenfelder blood pressure, systolic 110 mm[Hg] Nicko ri Gruenenfelder oxygen saturation, oximetry 97 % Glendy Gruenenfelder respiratory rate E&M 16 /min Glendy G ruenenfelder pulse rate 84 /min Glendy Gruenenfe lder weight E&M 251 [lb_av] Glendy Gruenenfe lder height E&M 70 [in_i] Glendy Gruenenfe lder Body Mass Index (Ratio) 36.15 kg/m2 David Appiah MD blood pressure, cuff size large Ke rri Gruenenfelder blood pressure, diastolic 92 mm[Hg] Ke rri Gruenenfelder blood pressure, systolic 132 mm[Hg] Nicko ri Gruenenfelder oxygen saturation, oximetry 97 % Glendy Gruenenfelder respiratory rate E&M 16 /min Glendy G ruenenfelder pulse rate 88 /min Glendy Gruenenfe lder weight E&M 252 [lb_av] Glendy Gruenenfe lder height E&M 70 [in_i] Glendy Gruenenfe lder ALLERGIES No Known Drug Allergies HISTORY OF MEDICATION USE Medication Status Instructions Dates Provider Indications Com ments Ozempic 0.25 mg or 0.5 mg(2 mg/1.5 mL) pen injector active Inject 1/4 mg subcutaneously once a week Take 0.25mg once a week x4 weeks then increase to 0.5mg weekly Linwood Knight bupropion HCl 150 mg tablet sustained-rel ease 12 hr completed 1 tablet by mouth twice a day - Josep Mena MD lisinopril 40 mg tablet active 1 tablet by mouth once a day Glendy Dos Santos SOCIAL HISTORY Date Observation Value Provider social history E&M S moking History: P atient currently smokes every day. P atient has been counseled to quit. Onel Hogue MD social history reviewed E&M revi ewed - no changes required Onel Hogue MD smoking/tobacco cess ation, patient education and counseling yes Connie Crenshaw number of years as a smoker 40 a Connie Crenshaw smoking history, tot al pack/day 1 ppd Connie Crenshaw cigarette use yes Connie mcleod smoking status Current every day smoker S luh Crenshaw social history E&M S moking History: P atient currently smokes every day. P atient has been counseled to quit. Onel Hogue MD social history reviewed E&M revi ewed - no changes required Onel Hogue MD smoking/tobacco cess ation, patient education and counseling yes Krupa Child number of years as a smoker 40 a Krupa Child smoking history, tot al pack/day 1 ppd Krupa Silveiraand cigarette use yes Krupa Mckenzie karla smoking status Current every day smoker M rosa maria Child social history E&M S moking History: P atient currently smokes every day. P atient has been counseled to quit. Linwood Knight smoking/tobacco cess ation, patient education and counseling yes Isabella Fink number of years as a smoker 40 a Isabellaclemente Fink smoking history, tot al pack/day 1 ppd Isabellaclemente Fink cigarette use yes Isabellaclemente Fnik smoking status Current every day smoker S tacy Aleks social history reviewed E&M revi ewed - no changes required Linwood Knight social history E&M S moking History: P atient currently smokes every day. P atient has been counseled to quit. Josep Mena MD social history reviewed E&M revi ewed - no changes required Josep Mena MD smoking/tobacco cess ation, patient education and counseling yes Isabella Fink number of years as a smoker 40 a Isabella Fink smoking history, tot al pack/day 1 ppd Isabella Aleks cigarette use yes Isabella Aleks smoking status Current every day smoker S sarwat Aleks drug use no Onel Hogue MD alcohol use no Onel Hogue MD social history E&M S moking History: P atient currently smokes every day. P atient has been counseled to quit. Onel Hogue MD social history reviewed E&M revi ewed - no changes required Onel Hogue MD smoking/tobacco cess ation, patient education and counseling yes Erinn Perkins number of years as a smoker 40 a Erinn Perkins smoking history, tot al pack/day 1 ppd Erinn Perkins cigarette use yes Erinn ng smoking status Current every day smoker Reyes izzy Perkins number of grandchildren Onel Au social history E&M S moking History: P atient currently smokes every day. P atient has been counseled to quit. Vidal Au social history reviewed E&M revi ewed - no changes required Vidal Au smoking/tobacco cess ation, patient education and counseling yes Clarita Celaya number of years as a smoker 40 a Shawnastity Belia smoking history, tot al pack/day 1 ppd Clarita Celaya cigarette use yes Clarita Celaya smoking status Current every day smoker C serjio Celaya social history E&M S moking History: P atient currently smokes every day. P atient has been counseled to quit. Vidal Au social history reviewed E&M revi ewed - no changes required Vidal Au smoking/tobacco cess ation, patient education and counseling yes Glendy Dos Santos number of years as a smoker 40 a Glendy Dos Santos smoking history, tot al pack/day 1 ppd Glendy Dos Santos cigarette use yes Glendy henson smoking status Current every day smoker K cristian Colonarcelia number of grandchildren Latasha Au social history E&M S moking History: P atient currently smokes every day. P atient has been counseled to quit. 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 1 tablet by mouth once a day Onel Hogue MD [id number],S,W ill check a venogram to assess the outflow of the left iliac veins. Onel Hogue MD [id number],C,V enous duplex today showed significant venous insufficiency of the right great saphenous vein. H as clot in left GSV and SSV. The ulcer on the lateral side of left leg in unchanged from Thanksgiving. I would continue use of compression socks. Onel Hogue MD [id number],C,V enous duplex today shows unchanged occlusive superficial thrombosis of the left SSV and mid-distal GSV. Will discuss her case with Vascular specialist and follow up after. Onel Hogue MD [id number],S, Linwood Ahmedza i [id number],S, Linwood medza i [id number],S, Linwood medza i [id number],S, Linwood medza i [id number],S, Linwood medza i [id number],S, Linwood medza i [id number],C,53, nml iron Josep Mena MD [id number],C,ldl 141 Jagdeep Mena MD [id number],C,5.9 Josep arciniega MD [id number],S,sx Josep cruz MD [id number],C,wants ex Alma Mena MD [id number],S, Josep vargas MD [id number],S, Josep Nadeem vargas MD [id number],S,T he patient is between 55-77 years old and has smoked at least 30 pack years. The patient is either a current smoker or has quit within the past 15 years. T he patient is recommended to have low dose CT scan for lung cancer screening. Has been counseled regarding the importance of tobacco cessation and abstinence. Shared decision making during this office visit included discussion of the benefits and harms of screening, possible future recommendations of follow-up diagnostic testing, and total amount of radiation exposure. The patient was recommended to have annual low dose CT scan for lung cancer screening and is willing to undergo diagnosis and treatment. Josep Mena MD [id number],S,n eg carotidd and zero srini and fixed nuic Josep Mena MD [id number],S,has hose , do se not want rx Josep Mena MD [id number],W, B P today: 124/70 P rior BP: 153/80 (04/07/2021) Onel Hogue MD [id number],S, Onel Hogue MD [id number],C,H as significant venous insufficiency n eeds compression b ut will decide if she wants vein closure. Onel Hogue MD [id number],S,C ontinue current meds H er updated medication list for this problem includes: Lisinopril 40 Mg Oral Tablet (Lisinopril) ..... One tab. daily Ellie Rosas NP [id number],S, Ellie ng NP [id number],S,Urged to cons ider cessation Ellie Rosas NP [id number],N,W ill obtain standing lower ext doppler to assess for reflux Ellie Rosas NP Cardiology: B P today: 126/89 P rior BP: 113/89 (07/17/2022) Her updated medication list for this problem includes: Lisinopril 40 Mg Tablet (Lisinopril) ..... 1 tablet by mouth once a day Onel Hogue MD Cardiology:Will chec k a venogram to assess the outflow of the left iliac veins. Onel Hogue MD Cardiology:Venous du plex today showed significant venous insufficiency of the right great saphenous vein. H as clot in left GSV and SSV. The ulcer on the lateral side of left leg in unchanged from Thanksgiving. I would continue use of compression socks. Onel Hogue MD Cardiology:Venous du plex today shows unchanged occlusive superficial thrombosis of the left SSV and mid-distal GSV. Will discuss her case with Vascular specialist and follow up after. Onel Hogue MD Cardiology Linwood Knight Cardiology Linwood Knight Cardiology Linwood Knight Cardiology Linwood Knight Cardiology Linwood Knight Cardiology Linwood Knight :53, nml iron Josep Mena MD :ldl 141 Josep Mena MD :5.9 Josep Mena MD Cardiology:sx Josep Mena MD Cardiology:wants ex Josep vargas MD Cardiology Josep Mena MD Cardiology Josep Mena MD Cardiology:The patie nt is between 55-77 years old and has smoked at least 30 pack years. The patient is either a current smoker or has quit within the past 15 years. T he patient is recommended to have low dose CT scan for lung cancer screening. Has been counseled regarding the importance of tobacco cessation and abstinence. Shared decision making during this office visit included discussion of the benefits and harms of screening, possible future recommendations of follow-up diagnostic testing, and total amount of radiation exposure. The patient was recommended to have annual low dose CT scan for lung cancer screening and is willing to undergo diagnosis and treatment. Josep Mena MD Cardiology:neg carotidd and zero srini and fixed nuic Josep Mena MD Cardiology:has hose , dose not w ant rx Josep Mena MD Cardiology follow up : B P today: 124/70 P rior BP: 153/80 (04/07/2021) Onel Hogue MD Cardiology follow up Onel kirby MD Cardiology follow up :Has significant venous insufficiency n eeds compression b ut will decide if she wants vein closure. Onel Hogue MD Cardiology:Continue current meds H er updated medication list for this problem includes: Lisinopril 40 Mg Oral Tablet (Lisinopril) ..... One tab. daily Ellie Rosas NP Cardiology Ellietavares Rosas N P Cardiology:Urged to consider hebert sation Ellie Rosas NP Cardiology:Will obta in standing lower ext doppler to assess for reflux Ellie Rosas NP Cardiology Follow up Vidal Au Cardiology Follow up Vidal Au Cardiology Follow up Vidal Au Cardiology Follow up Vidal Au Cardiology Follow up Vidal Au Cardiology New Patient Vidal Nac ht Cardiology New Patient Vidal Nac ht Cardiology New Patient Vidal Nac ht Cardiology New Patient Vidal Nac ht Cardiology New Patient Vidal Nac ht Date Name PROTHROMBIN TIME WIT H INR LIPID PANEL CBC (INCLUDES DIFF/P LT) BASIC METABOLIC PANE L W/EGFR Arterial Duplex Bi-L ower EX Venous Doppler Bilat eral LE - Reflux Sleep Study Home RPM (remote patient monitoring) VITAMIN B12 Vitamin D, 25-Hydrox y PROBNP, N TERMINAL BASIC METABOLIC PANE L W/EGFR IRON AND TOTAL IRON BINDING CAPACITY FERRITIN CBC (INCLUDES DIFF/P LT) CRP, high sensitivit y LIPID PANEL Complete Echo HEMOGLOBIN A1c Microalb/Creatinine Urine, Random Low Dose Lung CT Venous Doppler Bilat eral LE - Reflux CT, Coronary Calcium Score Stress Exercise Card iolite HISTORY OF PROCEDURES Procedure Date Procedure Name Provider Procedure Notes S tatus Counseling LDCT Josep Mena MD com pleted EKG Josep Mena MD complete d CT- Coronary CA score Latasha Appiah MD completed EKG Latasha Appiah MD completed
--- OUTSIDE RECORDS SUMMARY | 2024-09-17 17:04 | XMS_ITS | Encounter Summary ---
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 Name Role Phone Unavailable Primary Care Provider Unavailabl e Encounter Details Date Type Department Care Team (Late Contact Info) Description 09/17/2024 Abstract [facility] Oncology and Hematology - Herbie Michelle Quintana [address] [place] [address] Weston Dong MD [facility] [employer] [address] [place] [id number] Social History Tobacco Use Types Packs/Day Years Used Date Smoking Tobacco: Every Day Cigarettes 1 41.2 Started: 06/25/1983 Smokeless Tobacco: Never Alcohol Use Standard Drinks/Week Comments Yes 0 (1 standard drink = 0.6 oz pur e alcohol) Occasionally Comments Unknown Sex and Gender Information Value Date Recorded Sex Assigned at Not on file Legal Sex Female 3:08 PM CUTTER IN Gender Identity Not on file Sexual Orientation Not on file documented as of this encounter Plan of Treatment Upcoming Encounters Date Type Department Care Team (Late Contact Info) Description 10/01/2024 4:15 PM CDT Telephone Check Up [facility] Oncology and Hematology - Herbie Michelle Quintana [address] [place] [address] Weston Dong MD [facility] [employer] [address] [place] [id number] documented as of this encounter Visit Diagnoses Not on filedocumented in this encounter
[2024-09-17 17:17] LABS: Alanine Aminotransferase 16 U/L (6-35); Albumin Level 4.2 g/dL (3.5-5.1); Alkaline Phosphatase 81 U/L (38-126); Anion Gap 10 mmol/L (4-12); Aspartate Amino Transferase 24 U/L (14-36); Bilirubin,Total 0.5 mg/dL (0.2-1.3); Blood Urea Nitrogen 18 mg/dL (7-17); Calcium 9.1 mg/dL (8.4-10.2); Carbon Dioxide 24 mmol/L (22-30); Chloride 108 mmol/L (98-107); Estimated Glomerular Filt Rate 57; Glucose 103 mg/dL (65-110); Potassium 4.1 mmol/L (3.4-5.0); Sodium 142 mmol/L (137-145)
[2024-09-22 12:18] LABS: Erythropoietin (EPO) 8.7 mIU/mL (2.6-18.5)
== END 2024-09-17 15:59 | disposition home or self-care (01) ==
LOC: ANHLAB 15:59
PROVIDERS: Visit Provider Internal Medicine Hematology & Oncology
DX: D75.1 Secondary polycythemia (principal)
CPT/HCPCS: 36415; 80053; 81270; 82668; 85025

== ENCOUNTER 2024-09-19 00:15 | Day surgery (SDC) | payer OTHER, SELFPAY ==
[2024-09-08 15:27] VITALS: BMI 37.3
--- OUTSIDE RECORDS SUMMARY | 2024-09-19 00:23 | XMS_ITS | CONTINUITY OF CARE DOCUMENT ---
Author Name jess mercado Address Unknown Organization [facility] Address [address] [place] [address] Phone [phone] Care Team Providers Care Occasional Caregiver Name Role Phone Td COLEMAN, Latasha Unavailable [phone] Nate Johnson MD Unavailable [phone] Nate Johnson MD Unavailable PROBLEMS Condition Status Date Provider Notes B12 deficiency active Josep Mena MD Vitamin D deficiency active Josep Conley PREDIABETES; active Josep Mena MD HTN active Vidal Au Dizziness, nl carotid 09/12 completed - Josep Mena MD Numbness and tingling, left arm completed - Josep Mena MD Tobacco dependence, continuous active Josep Mena MD Family history of premature heart disease - calcium score 0, nl stress nuc 11/12 completed - Josep Mena MD Abnormal EKG completed - Josep Mena MD Obesity active Vidal Au Venous insufficiency active Ellie Rosas INSURANCE CLAIMS PROCESSOR Screening active Josep Mena MD neg uacr neg pro FAMILY HISTORY OF HEART DISEASE active Josep Mena MD brother Erythrocytosis active Josep Mena MD Hyperlipidemia;NEG CRP active Josep Mena MD ? Sleep apnea completed - Linwood Knight SAI--mod, autopap active Linwood Knight DVT active Onel Hogue MD Leg ulcer, left lateral active Onel Hogue MD ENCOUNTERS Date Type Provider Location Encounter Diag nosis - In-person encounter Office Visit Onel Hogue MD [facility] - In-person encounter Office Visit Onel Hogue MD [facility] DVTLeg ulcer, left lateral - In-person encounter Office Visit Latasha Appiah MD [facility] ? Sleep apneaOSA--mod, autopap - In-person encounter Office Visit Josep Mena MD [facility] Dizziness, nl carotid 09/12Numbness and tingling, left armTobacco dependence, continuousFamily history of premature heart disease - calcium score 0, nl stress nuc 11/12Abnormal EKGScreeningFAMILY HISTORY OF HEART DISEASEErythrocytosisHyperli pidemia;NEG CRP - In-person encounter Office Visit Onel Hogue MD [facility] - In-person encounter Office Visit Onel Hogue MD [facility] Venous insufficiency - In-person encounter Office Visit Latasha Appiah MD [facility] Obesity - In-person encounter Office Visit Latasha Appiah MD [facility] HTNTobacco dependence, continuousFamily history of premature [...] blood pressure, cuff size large [facility] [place] weight E&M 253 [lb_av] Connie Deshpande n height E&M 70 [in_i] Connie Deshpande n Body Mass Index (Ratio) 37.30 kg/m2 Verito Hogue MD blood pressure, diastolic 89 mm[Hg] Mikala dee [place] blood pressure, systolic 113 mm[Hg] Kilo tali [place] oxygen saturation, oximetry 94 % Krupa Child [...] % Isabellaclemente Fink pulse rate 82 /min Isabellaclemente Fink respiratory rate E&M 16 /min Isabella [...] ppd Isabellaclemente Fink cigarette use yes Isabellaclemente Fink smoking status Current every day smoker S [...] ation, patient education and counseling yes Vidal Au number of years as a smoker 40 a Glendy Dos Santos smoking history, tot al pack/day 1 ppd Glendy Dos Santos cigarette use yes Glendy henson smoking status Current every day smoker K cristian Dos Santos INSURANCE PROVIDERS Payer name Policy type / Coverage type Bev red green party ID [employer]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 1 tablet by mouth once a day Onel Hogue MD [id number],S,W ill check a venogram to assess the outflow of the left iliac veins. Onel Hogue MD [id number],C,V enous duplex today showed significant venous insufficiency of the right great saphenous vein. H as clot in left GSV and SSV. The ulcer on the lateral side of left leg in unchanged from Thanksgiving. I would continue use of compression socks. Onel Hogue MD [id number],C,V enous duplex today shows unchanged occlusive superficial thrombosis of the left SSV and mid-distal GSV. Will discuss her case with Vascular specialist and follow up after. Onel Hogue MD [id number],S, Linwood Ahmedza i [id number],S, Linwood medza i [id number],S, Linwood medza i [id number],S, Linwood medza i [id number],S, Linwood medza i [id number],S, Linwood medza i [id number],C,53, nml iron Josep Mena MD [id number],C,ldl 141 Jagdeep Mena MD [id number],C,5.9 Josep arciniega MD [id number],S,sx Josep cruz MD [id number],C,wants ex Alma Mena MD [id number],S, Josep vargas MD [id number],S, Josep Nadeem vargas MD [id number],S,T he patient is between 55-77 years old [...] undergo diagnosis and treatment. Josep Mena MD [id number],S,n eg carotidd and zero srini and fixed nuic Josep Mena MD [id number],S,has hose , do se not want rx Josep Mena MD [id number],W, B P today: 124/70 P rior BP: 153/80 (04/07/2021) Onel Hogue MD [id number],S, Onel Hogue MD [id number],C,H as significant venous insufficiency n eeds compression b ut will decide if she wants vein closure. Onel Hogue MD [id number],S,C ontinue current meds H er updated medication list for this problem includes: Lisinopril 40 Mg Oral Tablet (Lisinopril) ..... One tab. daily Ellie Rosas NP [id number],S, Ellie ng NP [id number],S,Urged to cons ider cessation Ellie Rosas NP [id number],N,W ill obtain standing lower ext doppler to [...]
--- OUTSIDE RECORDS SUMMARY | 2024-09-19 00:23 | XMS_ITS | Clinical Summary ---
Author Organization [facility] Address [address] [place] [address] Care Team Providers Care Fsr Name Role Phone Unavailable Primary Care Provider Unavailabl e Allergies No known active allergies Medications atorvastatin (LIPITOR) 20 mg tablet Take 1 Tablet by mouth daily. 08/05/2024 Active lisinopriL (PRINIVIL) 40 mg tablet Take 40 mg by mouth daily. Active cyanocobalamin 1,000 mcg Tablet Take 500 mcg by mouth daily. Active B3/azel ac/zinc/B6/coppe r/FA (R0-[id number]-YTKT -G7-EXXXUS-SN ORAL) Take 50 mcg by mouth daily. Active Active Problems No known active problems Encounters Date Type Department Care Team Description 09/18/2024 Orders Only [facility] Oncology and Hematology - [address] [place] [address] Weston Dong MD 09/17/2024 3:00 PM CDT Office Visit [facility] Oncology and Hematology - [place] [place] [address] Weston Dong MD Erythrocytosis (Primary Dx); Screening for lung cancer 09/17/2024 Abstract [facility] On[facility] and Hematology - [place] [place] [address] Weston Dong MD from Last [...] on file 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 Gender Identity Not on file Sexual Orientation [...] 10/01/2024 4:15 PM CDT Telephone Check Up [facility] Oncology and Hematology - [place] [address] [facility] [address] [place] [address] Weston Dong MD [address] [facility] [address] [place] [address] Health Maintenance Due Date Last Done Comments Pre-Diabetes and Diabetes Screening 1964 DTAP/TDAP/TD VACCINES (1 - Tdap) 11/04/1983 HEPATITIS B VACCINES (1 of 3 - 19+ 3-dose series) 10/23 HPV/Cotest (21-29) 1985 CERVICAL CANCER SCREENING 1994 HPV/Cotest (30-65) 1994 PAP SMEAR 1994 BREAST CANCER SCREENING 2004 COLORECTAL SCREENING 2009 Colorectal Cancer Screening 2009 FIT-DNA Q 3 years 2009 FIT/FOBT Q 1 year 2009 Flex Sig/CT Colonography Q 5 years 2009 Lung Cancer Screening 2014 ZOSTER VACCINE (1 of 2) 2014 INFLUENZA VACCINE (#1) 2024 Preventative Visit- Commercial 06/25/2024 Procedures Procedure Name Priority Date/Time Associated Diagnosis Comments CBC WITH DIFFERENTIAL Routine 09/17/2024 2:36 PM CDT COMPREHENSIVE METABOLIC PANEL Routine 09/17/2024 1:57 PM CDT from Last 3 Months Results * CBC WITH DIFFERENTIAL (09/17/2024 2:36 PM CDT) Blood us Weston Dong MD HEMATOLOGY ORDERABLES Final Res ult * COMPREHENSIVE METABOLIC PANEL (09/17/2024 1:57 PM CDT) Blood us Weston Dong MD CHEMISTRY ORDERABLES Final Resu lt from Last 3 Months Insurance ASSN LETTER CARRIERS OAP
--- OUTSIDE RECORDS SUMMARY | 2024-09-19 00:23 | XMS_ITS | Referral Summary ---
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
--- OUTSIDE RECORDS SUMMARY | 2024-09-19 00:23 | XMS_ITS | Clinical Summary ---
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
--- OUTSIDE RECORDS SUMMARY | 2024-09-19 00:23 | XMS_ITS | Encounter Summary ---
Author Organization [facility] Address [address] [place] [address] Care Team Providers Care Finish Remover Name Role Phone Unavailable Primary Care Provider Unavailabl e Encounter Details Date Type Department Care Team (Late Contact Info) Description 09/18/2024 Orders Only [facility] Oncology and Hematology 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 [address] [place] [address] Weston Dong MD [address] [place] [place] [address] [email or web address] [address] [place] [phone] documented as of this encounter Procedures Procedure Name Priority Date/Time Associated Diagnosis Comments CBC WITH DIFFERENTIAL Routine 09/17/2024 2:36 PM CDT COMPREHENSIVE METABOLIC PANEL Routine 09/17/2024 1:57 PM CDT documented in this encounter Results * CBC WITH DIFFERENTIAL (09/17/2024 2:36 PM CDT) Blood us Weston Dong MD HEMATOLOGY ORDERABLES Final Res ult * COMPREHENSIVE METABOLIC PANEL (09/17/2024 1:57 PM CDT) Blood us Weston Dong MD CHEMISTRY ORDERABLES Final Resu lt documented in this encounter Visit Diagnoses Not on filedocumented in this encounter
--- OUTSIDE RECORDS SUMMARY | 2024-09-19 00:23 | XMS_ITS | Clinical Summary ---
Author Organization [facility] Address [address] [place] [address] Care Team Providers Care Harbor Engineer Name Role Phone Nate Johnson MD Primary Care Provider [phone] Medications gentamicin (GARAMYCIN) 0.1 % ointment Apply topically daily. 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 Gender Identity Not on file Sexual Orientation Not on file Plan of Treatment Health Maintenance Due Date Last Done Comments Cervical Cancer Screening Pa p Smear (Age 30 to 64) Every 3 Years 1964 Colorectal Cancer Screening Colonoscopy (10 Years) 1964 Annual Physical 11/04/1967 Hepatitis C 1982 DTaP, Tdap and Td Vaccines ( 1 - Tdap) 11/04/1983 Cervical Cancer Screening Pa p with HPV Testing (Age 30 to 64) Every 5 Years 1994 Cervical Cancer Screening with HPV 1994 Mammogram Screening 2004 Zoster Vaccines (1 of 2) 2014 COVID-19 Vaccine (2023-2 5 season) 2024 Influenza Adult (#1) 2024 Meningococcal B Vaccine Aged Out No l onger eligible based on patient's age to complete this topic Meningococcal Vaccine Aged Out No gamal juan eligible based on patient's age to complete this topic Pneumococcal Vaccine: Pediat rics (0 to 5 Years) and At-Risk Patients (6 to 64 Years) Aged Out No longer eligible b ased on patient's age to complete this topic RSV Immunizations Under 20 Months Aged Out No longer eligible based on patient's age to complete this topic Insurance Care Teams Harbor Engineer Relationship Specialty Start Date End Date Nate Johnson MD PCP - General INTERNAL MEDICINE 08/16/23
--- OUTSIDE RECORDS SUMMARY | 2024-09-19 00:23 | XMS_ITS | Clinical Summary ---
Author Organization [facility] Address [address] [facility] [place] [address] Care Team Providers Care Subsorter Name Role Phone Nate Johnson MD Primary Care Provider Source Comments [facility],non-owned Affiliates and Associated Physician Practices is amultiple site organization consisting of ambulatory clinics and hospital sitesin [place], [place], [place] and [place]. This disclosure is being madepursuant to the Care Everywhere program and may not contain all information available regarding this patient. Last updated 18.[facility] Allergies Active Allergy Reactions Criticality Noted Date [...] age to complete this topic Care Teams Subsorter Relationship Specialty Start Date End Date Nate Johnson MD [address] [address] PCP - General Internal Medicine 11/03/18
[2024-09-19 07:15] VITALS: BP 133/71; PULSE 77; RESP 16; TEMP 36.4; O2SAT 97
[2024-09-19] MEDS: LACTATED RINGERS 1,000 ML 150 ML IV CONT (07:29)
--- NOTE | 2024-09-19 07:45 | WPDANESEPPF ---
Anes - Initial Pre Proc Eval Procedure: Operation Date: 09/19/24 08:30 Proposed Procedures p Esophagogastroduodenoscopy & Colonoscopy - Mike Davila MD Date/Time: 09/19/24 07:45 Surgeon: Mike Davila MD Pre Op Diagnosis: screening malignant neoplasm colon Patient Data Age: 58 Gender: F Height: 1.78 m Weight: 114.5 kg Last Vital Signs Temp 36.4 C L 09/19/24 07:15 Pulse 77 09/19/24 07:15 Resp 16 09/19/24 07:15 BP 133/71 09/19/24 07:15 Pulse Ox 97 09/19/24 07:15 O2 Del Method Room Air 09/19/24 07:15 Allergies Allergy/AdvReac Type Severity Reaction Status Date / Time No Known Allergies Allergy Verified 09/19/24 07:14 Home Medications ?Medication ?Instructions ?Recorded ?Confirmed ?Type lisinopril 40 mg tablet 40 mg PO DAILY 04/07/24 09/19/24 History cholecalciferol (vitamin D3) 50 50 mcg PO DAILY 05/14/24 09/19/24 History mcg (2,000 unit) capsule cyanocobalamin (vitamin B-12) 50 50 mcg PO DAILY 05/14/24 09/19/24 History mcg tablet (Vitamin B-12) atorvastatin 20 mg tablet 20 mg PO DAILY #90 tabs 08/05/24 09/19/24 Rx Patient hx anesthesia problems: none Family hx anesthesia problems: none Results Review: All pre-operative results and documents have been reviewed as part of the pre-operative evaluation. [facility] Past Medical History Medical History SAI (obstructive sleep apnea) Hyperlipidemia H/O cyst of breast HTN (hypertension) Surgical History Surgical History (Updated 09/19/24 @ 07:45 by Gamal Mina MD) [place] teeth removed History of loop electrosurgical excision procedure (LEEP) History of colposcopy History of appendectomy Family History Family History Mother Cancer Diabetes mellitus Sibling Alcoholism Heart problem Social History Social History Smoking packs per day: 1 Smoking cigarettes per day: 20.0 Years smoked: 40 Smoking pack-years: 40.00 Smoking status: Current every day smoker Tobacco type: cigarettes and e-cigarettes/vaping Alcohol intake: never Substance use: never Substance use type: does not use Do You Feel Safe in your Home?: Yes Lack of Transportation: No Lack of Food: Never True Current Housing: I Have Housing Concerned About Future Housing: No Difficulty Paying Gas/Electric Bills: No Currently Unemployed: No Education: Associate Degree Difficulty w/ Childcare or Family Care: No Living arrangements: with family Spiritual care concerns: No Anes - Eval Final PreProcedure Day of Procedure 09/19/24 07:45 Patient weight: obese Heart: regular rate and rhythm Lungs: clear to auscultation Airway: Mallampati scale class II Neurological: alert and oriented Last oral intake: >/= 8 hours ASA classification: III Emergent: no Anesthetic plan: proceed Anesthesia type and monitoring: general GIVS and standard monitoring Results Review: All pre-operative results and documents have been reviewed as part of the pre-operative evaluation. Informed Consent: The patient's anesthetic plan and its attendant risks and benefits were discussed with the patient/family/POA. Questions were solicited and answers provided to the satisfaction of the patient/family/POA.
--- NOTE | 2024-09-19 08:22 | P.HP_ITS ---
History of Present Illness History of Present Illness Consent: Risks, benefits, and alternatives have been discussed and questions answered. Patient agrees to proceed with procedure. Chief complaint: screening malignant neoplasm colon Narrative: Charissa Kirk is a 58 year old female with dysphagia, also colon polyp about 6-7 years ago Review of Systems Review of Systems: All systems reviewed & are unremarkable except as noted in HPI and below PMFSH Past Medical History Medical History (Updated 09/19/24 @ 08:23 by Mike Davila MD) Dysphagia Colon polyp SAI (obstructive sleep apnea) Hyperlipidemia H/O cyst of breast HTN (hypertension) Surgical History Surgical History (Updated 09/19/24 @ 07:45 by Gamal Mina MD) [place] teeth removed History of loop electrosurgical excision procedure (LEEP) History of colposcopy History of appendectomy Family History Family History Mother Cancer Diabetes mellitus Sibling Alcoholism Heart problem Social History Social History Smoking packs per day: 1 Smoking cigarettes per day: 20.0 Years smoked: 40 Smoking pack-years: 40.00 Smoking status: Current every day smoker Tobacco type: cigarettes and e-cigarettes/vaping Alcohol intake: never Substance use: never Substance use type: does not use Do You Feel Safe in your Home?: Yes Lack of Transportation: No Lack of Food: Never True Current Housing: I Have Housing Concerned About Future Housing: No Difficulty Paying Gas/Electric Bills: No Currently Unemployed: No Education: Associate Degree Difficulty w/ Childcare or Family Care: No Living arrangements: with family Spiritual care concerns: No Meds Home Medications and Allergies Home Medications ?Medication ?Instructions ?Recorded ?Confirmed ?Type lisinopril 40 mg tablet 40 mg PO DAILY 04/07/24 09/19/24 History cholecalciferol (vitamin D3) 50 50 mcg PO DAILY 05/14/24 09/19/24 History mcg (2,000 unit) capsule cyanocobalamin (vitamin B-12) 50 50 mcg PO DAILY 05/14/24 09/19/24 History mcg tablet (Vitamin B-12) atorvastatin 20 mg tablet 20 mg PO DAILY #90 tabs 08/05/24 09/19/24 Rx Allergies Allergy/AdvReac Type Severity Reaction Status Date / Time No Known Allergies Allergy Verified 09/19/24 07:14 Vital Signs Vital Signs - 24 hr 09/19/24 07:15 Temperature 97.5 F L Pulse Rate 77 Respiratory Rate 16 Blood Pressure 133/71 Pulse Oximetry 97 Oxygen Delivery Room Air Exam Const: General: comfortable and no acute distress HENMT: Face/Nose/Sinus: Normal nares present Eyes: General: appearance normal, both eyes and all related structures Neck: Neck: no JVD Resp: Auscultation: clear to auscultation bilaterally Cardio: Rate: regular rate Rhythm: regular rhythm GI: Inspection: non-distended GI Palp: Yes Soft to palpation Skin: General skin exam: normal color Neuro: Speech: normal speech Extrem: General: normal to inspection Psych: Mental Status: mental status grossly normal Assessment and Plan Assessment and plan (1) Colon polyp: Code(s): K63.5 - Polyp of colon Status: Acute Assessment and Plan: colonoscopy (2) Dysphagia: Code(s): R13.10 - Dysphagia, unspecified Status: Acute Assessment and Plan: egd
[2024-09-19 08:42] VITALS: BP 106/51; PULSE 75; RESP 20; O2SAT 96
[2024-09-19 08:52] VITALS: BP 100/43; PULSE 75; RESP 22; O2SAT 96
[2024-09-19 09:02] VITALS: BP 105/59; PULSE 72; RESP 19; O2SAT 98
== END 2024-09-19 09:13 | disposition home or self-care (01) ==
PROVIDERS: Referring Provider Internal Medicine; Visit Provider Internal Medicine Gastroenterology
PROC: 0DJ08ZZ Inspection of Upper Intestinal Tract, Via Natural or Artificial Opening Endoscopic (ICD-10-PCS; CPT 45378; principal; 2024-09-19 08:30)
DX: Z12.11 Encounter for screening for malignant neoplasm of colon (principal); D12.5 Benign neoplasm of sigmoid colon; K63.5 Polyp of colon; K64.8 Other hemorrhoids; K57.30 Diverticulosis of large intestine without perforation or abscess without bleeding; K44.9 Diaphragmatic hernia without obstruction or gangrene; K20.0 Eosinophilic esophagitis; E78.5 Hyperlipidemia, unspecified; I10 Essential (primary) hypertension; G47.33 Obstructive sleep apnea (adult) (pediatric); F17.210 Nicotine dependence, cigarettes, uncomplicated; F17.290 Nicotine dependence, other tobacco product, uncomplicated; E66.9 Obesity, unspecified; Z68.36 Body mass index [BMI] 36.0-36.9, adult; Z98.890 Other specified postprocedural states; Z80.9 Family history of malignant neoplasm, unspecified; Z82.49 Family history of ischemic heart disease and other diseases of the circulatory system
CPT/HCPCS: 43239; 43450; 45385; 88305; J2704; J7120